=== PATIENT | female | born 1960 | race Caucasian/White ===

== ENCOUNTER 2017-01-25 13:21 | Emergency (ER) | payer OTHER ==
[~2017-01-25] VITALS: Ht 165.1 cm; Wt 63.0 kg
[~2017-01-25 13:21] MED LIST: CLON1TAB3 PO
--- NOTE | 2017-01-25 13:30 | PHYS DOC ---
Past Medical History Past Medical History: Anxiety, Bipolar, Seizure, Schizophrenia Past Surgical History: Other Additional Past Surgical Histo: hernia repair with mesh with abdomen Alcohol Use: None Drug Use: None Adult General Chief Complaint Chief Complaint: ANXIETY/PANIC ATTACK HPI HPI Patient is a 56 year old female who presents with multiple complaints. She states her back is hurting her and she wanted some x-rays done. She states she had them done 2 years ago but she is not convinced that they were legitimate x-rays. She complains in the lumbar area. She's been taking Tylenol for this discomfort. She denies any fevers chills nausea or vomiting. She also states she's been out of her clonazepam 1 mg twice a day for approximately 2 weeks. She states she is seen at the [facility] by Dr. Olsen and she can't get a hold of him to get refills. Review of Systems Review of Systems Constitutional: Denies fever or chills [] Eyes: Denies change in visual acuity, redness, or eye pain [] HENT: Denies nasal congestion or sore throat [] Respiratory: Denies cough or shortness of breath [] Cardiovascular: No additional information not addressed in HPI [] GI: Denies abdominal pain, nausea, vomiting, bloody stools or diarrhea [] : Denies dysuria or hematuria [] Musculoskeletal: Positive for back pain, Denies joint pain [] Integument: Denies rash or skin lesions [] Neurologic: Denies headache, focal weakness or sensory changes [] Endocrine: Denies polyuria or polydipsia [] Current Medications Current Medications Current Medications Medications (Trade) Dose Ordered Sig/[facility] Start Time Stop Time Status Last Admin Dose Admin Clonazepam (KlonoPIN) 0.5 mg 1X ONCE 01/25/17 14:00 01/25/17 14:01 DC 01/25/17 14:17 0.5 MG Potassium Chloride (Klor-Con) 40 meq 1X ONCE 01/25/17 15:45 01/25/17 15:46 01/25/17 15:34 40 MEQ Allergies Allergies Allergies Coded Allergies Type Severity Reaction Last Updated Verified No Known Drug Allergies 04/04/16 No Physical Exam Physical Exam Constitutional: Well developed, well nourished, no acute distress, non-toxic appearance. [] HENT: Normocephalic, atraumatic, bilateral external ears normal, oropharynx moist, no oral exudates, nose normal. [] Eyes: PERRLA, EOMI, conjunctiva normal, no discharge. [] Neck: Normal range of motion, no tenderness, supple, no stridor. [] Cardiovascular:Heart rate regular rhythm, no murmur [] Lungs & Thorax: Bilateral breath sounds clear to auscultation [] Abdomen: Bowel sounds normal, soft, no tenderness, no masses, no pulsatile masses. [] Skin: Warm, dry, no erythema, no rash. [] Back: Mild tender palpation diffusely to the lumbar area, no step-offs or midline tenderness noted or appreciated, no CVA tenderness. [] Extremities: No tenderness, no cyanosis, no clubbing, ROM intact, no edema. [] Neurologic: Alert and oriented X 3, normal motor function, normal sensory function, no focal deficits noted. [] Psychologic: Affect normal, judgement normal, mood normal. [] Current Patient Data Vital Signs Vital Signs Date Time Temp Pulse Resp B/P (MAP) Pulse Ox O2 Delivery O2 Flow Rate FiO2 01/25/17 15:01 78 146/78 (100) 95 01/25/17 14:50 Room Air 01/25/17 14:11 17 01/25/17 13:29 97.7 97.7 Lab Values Laboratory Tests Test 01/25/17 14:00 01/25/17 14:18 White Blood Count 10.2 x10^3/uL (4.0-11.0) Red Blood Count 4.62 x10^6/uL (3.50-5.40) Hemoglobin 14.7 g/dL (12.0-15.5) Hematocrit 43.2 % (36.0-47.0) Mean Corpuscular Volume 94 fL (79-100) Mean Corpuscular Hemoglobin 32 pg (25-35) Mean Corpuscular Hemoglobin Concent 34 g/dL (31-37) Red Cell Distribution Width 13.2 % (11.5-14.5) Platelet Count 225 x10^3/uL (140-400) Neutrophils (%) (Auto) 79 % (31-73) H Lymphocytes (%) (Auto) 16 % (24-48) L Monocytes (%) (Auto) 4 % (0-9) Eosinophils (%) (Auto) 0 % (0-3) Basophils (%) (Auto) 1 % (0-3) Neutrophils # (Auto) 8.0 x10^3uL (1.8-7.7) H Lymphocytes # (Auto) 1.6 x10^3/uL (1.0-4.8) Monocytes # (Auto) 0.4 x10^3/uL (0.0-1.1) Eosinophils # (Auto) 0.0 x10^3/uL (0.0-0.7) Basophils # (Auto) 0.1 x10^3/uL (0.0-0.2) Sodium Level 139 mmol/L (136-145) Potassium Level 3.4 mmol/L (3.5-5.1) L Chloride Level 102 mmol/L (98-107) Carbon Dioxide Level 29 mmol/L (21-32) Anion Gap 8 (6-14) Blood Urea Nitrogen 7 mg/dL (7-20) Creatinine 0.8 mg/dL (0.6-1.0) Estimated GFR (Cockcroft-Gault) 74.2 Glucose Level 124 mg/dL (70-99) H Calcium Level 9.2 mg/dL (8.5-10.1) Total Bilirubin 0.3 mg/dL (0.2-1.0) Direct Bilirubin 0.1 mg/dL (0.0-0.2) Aspartate Amino Transferase (AST) 16 U/L (15-37) Alanine Aminotransferase (ALT) 25 U/L (14-59) Alkaline Phosphatase 118 U/L (46-116) H Creatine Kinase 99 U/L (26-192) Creatine Kinase MB (Mass) 0.9 ng/mL (0.0-3.6) Creatine Kinase MB Relative Index 0.9 % (0-4) Total Protein 7.9 g/dL (6.4-8.2) Albumin 3.9 g/dL (3.4-5.0) Lipase 108 U/L (73-393) Serum Test, Qualitative Negative (NEG) Urine Collection Type Unknown Urine Color Yellow Urine Clarity Clear Urine pH 7.0 Urine Specific [place] <=1.005 Urine Protein Negative mg/dL (NEG-TRACE) Urine Glucose (UA) Negative mg/dL (NEG) Urine Ketones (Stick) Negative mg/dL (NEG) Urine Blood Small (NEG) Urine Nitrite Positive (NEG) Urine Bilirubin Negative (NEG) Urine Urobilinogen Dipstick 0.2 mg/dL (0.2 mg/dL) Urine Leukocyte Esterase Trace (NEG) Urine RBC 1-2 /HPF (0-2) Urine WBC 5-10 /HPF (0-4) Urine Squamous Epithelial Cells Mod /LPF Urine Bacteria Many /HPF (0-FEW) Urine Opiates Screen Neg (NEG) Urine Methadone Screen Neg (NEG) Urine Barbiturates Neg (NEG) Urine Phencyclidine Screen Neg (NEG) Urine Amphetamine/Methamphetamine Neg (NEG) Urine Benzodiazepines Screen Neg (NEG) Urine Cocaine Screen Neg (NEG) Urine Cannabinoids Screen Neg (NEG) Urine Ethyl Alcohol Neg (NEG) Laboratory Tests 01/25/17 14:00 Laboratory Tests 01/25/17 14:00 EKG EKG [] Radiology/Procedures Radiology/Procedures [facility] [address] [place] [address] IMAGING REPORT Signed PATIENT: XIOMARA CLAUDIO ACCOUNT: [id number] : 1960 LOCATION: ER AGE: 56 SEX: F EXAM STATUS: REG ER ORD. PHYSICIAN: MAYE CHOU MD REASON: back pain PROCEDURE: LUMBAR SPINE 2-3V Exam performed: X-ray lumbar spine. History: Back pain. Date of service: 01/25/17 comparison: None available Findings: AP, lateral and coned view of the lumbosacral junction are obtained. Normal sagittal alignment is preserved. Vertebral body heights are maintained. There is narrowing of L4-5 intervertebral disc spaces with mild marginal osteophytes. No compression fracture. There are bilateral facet hypertrophic changes extending from C3 to S1. Impression: Mild spondylotic changes and degenerative disc disease involving the lumbar spine. No acute abnormality noted. DICTATED and SIGNED BY: SHARA HORNE MD DATE: 01/25/17 3245 CC: MAYE CHOU MD; UNKNOWN PCP NAME ~ Impressions: back pain UTI med refill Course & Med Decision Making Course & Med Decision Making Pertinent Labs and Imaging studies reviewed. (See chart for details) [] Dragon Disclaimer Dragon Disclaimer This electronic medical record was generated, in whole or in part, using a voice recognition dictation system. Departure Departure Impression: Primary Impression: Medication refill Disposition: HOME, SELF-CARE Condition: STABLE Referrals: SUDHA WILSON MD (PCP) Patient Instructions: Back Pain, Adult, [id number] Additional Instructions: You were seen today because you ran out of your medications. Your potassium level was slightly low and this was replaced. You also had a bladder infection and need take antibiotics for the next 3 days. Your being discharged home. Please follow-up with your [facility] physician as soon as possible. I've written a prescription of 0.5 mg clonazepam twice daily for the next few days until you can get her meds refilled. Scripts Levofloxacin (LEVAQUIN) 500 Mg Tablet 1 TAB PO DAILY, #3 TAB Prov: MAYE CHOU MD 01/25/17 Clonazepam (CLONAZEPAM) 0.5 Mg Tablet 1 TAB PO BID Y for ANXIETY, #15 TAB 1 Refill Prov: MAYE CHOU MD 01/25/17 MAYE CHOU MD Jan 25, 2017 13:30
[2017-01-25] MEDS ORDERED: clonazePAM 0.5 MG TABLET PO ONE (14:00)
--- NOTE | 2017-01-25 14:09 | RAD ---
Exam performed: X-ray lumbar spine. History: Back pain. Date of service: 01/25/17 comparison: None available Findings: AP, lateral and coned view of the lumbosacral junction are obtained. Normal sagittal alignment is preserved. Vertebral body heights are maintained. There is narrowing of L4-5 intervertebral disc spaces with mild marginal osteophytes. No compression fracture. There are bilateral facet hypertrophic changes extending from C3 to S1. Impression: Mild spondylotic changes and degenerative disc disease involving the lumbar spine. No acute abnormality noted.
[2017-01-25 14:19] LABS: BASO # 0.1 x10^3/uL (0.0-0.2); BASO % 1 % (0-3); EOS % 0 % (0-3); HEMATOCRIT 43.2 % (36.0-47.0); HEMOGLOBIN 14.7 g/dL (12.0-15.5); LYMPH # 1.6 x10^3/uL (1.0-4.8); LYMPH % 16 % (24-48); MEAN CORPUSCULAR HEMOGLOBIN 32 pg (25-35); MEAN CORPUSCULAR HGB CONC 34 g/dL (31-37); MEAN CORPUSCULAR VOLUME 94 fL (79-100); MONO % 4 % (0-9); NEUT % 79 % (31-73); PLATELET COUNT 225 x10^3/uL (140-400); RED BLOOD COUNT 4.62 x10^6/uL (3.50-5.40); RED CELL DISTRIBUTION WIDTH 13.2 % (11.5-14.5); WHITE BLOOD COUNT 10.2 x10^3/uL (4.0-11.0)
[2017-01-25 14:36] LABS: NEG OBC SER NEG; POS OBC SER POS
[2017-01-25 14:37] LABS: CALCIUM 9.2 mg/dL (8.5-10.1); CREATININE 0.8 mg/dL (0.6-1.0); GFR 74.2; POTASSIUM 3.4 mmol/L (3.5-5.1)
[2017-01-25 14:45] LABS: ALBUMIN 3.9 g/dL (3.4-5.0); DIRECT BILIRUBIN 0.1 mg/dL (0.0-0.2); TOTAL BILIRUBIN 0.3 mg/dL (0.2-1.0); TOTAL PROTEIN 7.9 g/dL (6.4-8.2)
[2017-01-25 14:48] LABS: BARBITURATES NEG (NEG); BENZODIAZEPINES NEG (NEG); CANNABINOIDS NEG (NEG); COCAINE NEG (NEG); METHADONE NEG (NEG); OPIATES NEG (NEG); PHENCYCLIDINE NEG (NEG)
[2017-01-25 14:51] LABS: CKMB MASS 0.9 ng/mL (0.0-3.6)
[2017-01-25 15:01] VITALS: BP 146/78
[2017-01-25 15:21] LABS: BILIRUBIN,URINE NEGATIVE (NEG); GLUCOSE,URINE NEGATIVE (NEG); NITRITE,URINE POSITIVE (NEG); PROTEIN,URINE NEGATIVE (NEG-TRACE); UROBILINOGEN,URINE 0.2 mg/dL (0.2 mg/dL)
[2017-01-25 15:30] LABS: BACTERIA,URINE MANY /HPF (0-FEW); SQUAMOUS EPITHELIAL CELL,UR MOD /LPF
[2017-01-25] MEDS ORDERED: CLON0.5T3 PO (15:31)
[2017-01-25] MEDS ORDERED: LEVO500T59 PO (15:37)
[2017-01-25] MEDS ORDERED: POTASSIUM CHLORIDE 20 MEQ TABLET.ER. PO ONE (15:45)
--- NOTE | 2017-01-27 14:35 | VNOTE ---
CALL BACK NOTE CALL BACK Microbiology 01/25/17 Urine Culture - Final, Complete 01/25/17 Urine Culture Result 1 (RICO) - Final, Complete 01/25/17 Antimicrobic Susceptibility - Final, Complete Patient's urine was positive for Escherichia coli. Patient was placed on Levaquin which is resistant to this infection. Notified the patient at her home phone number [phone]. Patient will be placed on Macrobid one tablet twice day for the next 7 days. She has requested the prescription be called into [facility] at [address] [place] [address]. ROSIE KELLY APRN Jan 27, 2017 14:35
== END 2017-01-25 15:47 | disposition home or self-care (01) ==
LOC: ER 13:21
DX: M51.36 Other intervertebral disc degeneration, lumbar region (principal); E87.6 Hypokalemia; Z76.0 Encounter for issue of repeat prescription; Z79.899 Other long term (current) drug therapy; F20.9 Schizophrenia, unspecified
CPT/HCPCS: 36415; 72100; 80048; 80076; 80307; 81001; 82553; 83690; 84703; 85025; 87086; 87186; 99285; G0479

== ENCOUNTER 2017-02-08 15:29 | Emergency (ER) | payer OTHER ==
[~2017-02-08] VITALS: Ht 165.1 cm; Wt 63.0 kg
[~2017-02-08 15:29] MED LIST changes: +CLON0.5T3 PO; +LEVO500T59 PO
[2017-02-08 15:40] VITALS: BP 118/68
[2017-02-08] MEDS ORDERED: clonazePAM 0.5 MG TABLET PO ONE (16:00)
[2017-02-08 16:05] LABS: BILIRUBIN,URINE NEGATIVE (NEG); GLUCOSE,URINE NEGATIVE (NEG); NITRITE,URINE NEGATIVE (NEG); PH,URINE 6.5; PROTEIN,URINE NEGATIVE (NEG-TRACE); UROBILINOGEN,URINE 0.2 mg/dL (0.2 mg/dL)
--- NOTE | 2017-02-08 16:06 | PHYS DOC ---
Past Medical History Past Medical History: Anxiety, Bipolar, Seizure, Schizophrenia, UTI Past Surgical History: Other Additional Past Surgical Histo: hernia repair with mesh with abdomen; exploratory laproscopy Alcohol Use: None Drug Use: None Adult General Chief Complaint Chief Complaint: BACK PAIN - NO INJURY [facility] HPI Patient is a 56 year old female presents to the emergency department stating that she has been having urinary frequency and pain with urination. She states that she was treated with antibiotics on 01/25 in which she feels do not take care of the infection. Patient also states that she is having lower back pain and discomfort with no injury. She does state that she's having to do a lot of chores where she is living at. Patient also states she has a history of bipolar and takes clonazepam. She states that she had a prescription that was filled on 01/28 and shortly after filling the prescription that she lost the medication. She states she has been without her medicine since that time. Patient denies being homicidal or suicidal. Patient is unable to remember who provided her with the prescription. Patient denies any numbness or tingling down into her lower extremities. She denies any loss of bowel or bladder. Review of Systems Review of Systems Constitutional: Denies fever or chills [] Eyes: Denies change in visual acuity, redness, or eye pain [] HENT: Denies nasal congestion or sore throat [] Respiratory: Denies cough or shortness of breath [] Cardiovascular: No additional information not addressed in HPI [] GI: Denies abdominal pain, nausea, vomiting, bloody stools or diarrhea [] : dysuria denies hematuria [] Musculoskeletal: back pain denies joint pain [] Integument: Denies rash or skin lesions [] Neurologic: Denies headache, focal weakness or sensory changes [] Endocrine: Denies polyuria or polydipsia [] Current Medications Current Medications Current Medications Medications (Trade) Dose Ordered Sig/[facility] Start Time Stop Time Status Last Admin Dose Admin Clonazepam (KlonoPIN) 1 mg 1X ONCE 02/08/17 16:00 02/08/17 16:01 DC 02/08/17 16:05 1 MG Allergies Allergies Allergies Coded Allergies Type Severity Reaction Last Updated Verified No Known Drug Allergies 04/04/16 No Physical Exam Physical Exam Constitutional: Well developed, well nourished, no acute distress, non-toxic appearance. [] HENT: Normocephalic, atraumatic, bilateral external ears normal, oropharynx moist, no oral exudates, nose normal. [] Eyes: PERRLA, EOMI, conjunctiva normal, no discharge. [] Neck: Normal range of motion, no tenderness, supple, no stridor. [] Cardiovascular:Heart rate regular rhythm, no murmur [] Lungs & Thorax: Bilateral breath sounds clear to auscultation [] Skin: Warm, dry, no erythema, no rash. [] Back: No tenderness, bilateral CVA tenderness. [] Extremities: No tenderness, no cyanosis, no clubbing, ROM intact, no edema. Patient with the inability to straighten bilateral legs. Patient is also able to cross legs without difficulty. Neurologic: Alert and oriented X 3, normal motor function, normal sensory function, no focal deficits noted. [] Psychologic: Affect normal, judgement normal, mood normal. [] Current Patient Data Vital Signs Vital Signs Date Time Temp Pulse Resp B/P (MAP) Pulse Ox O2 Delivery O2 Flow Rate FiO2 02/08/17 15:40 97.8 84 22 98 Room Air 97.8 Lab Values Laboratory Tests Test 02/08/17 16:00 Urine Collection Type Unknown Urine Color Yellow Urine Clarity Clear Urine pH 6.5 Urine Specific [place] <=1.005 Urine Protein Negative mg/dL (NEG-TRACE) Urine Glucose (UA) Negative mg/dL (NEG) Urine Ketones (Stick) Negative mg/dL (NEG) Urine Blood Negative (NEG) Urine Nitrite Negative (NEG) Urine Bilirubin Negative (NEG) Urine Urobilinogen Dipstick 0.2 mg/dL (0.2 mg/dL) Urine Leukocyte Esterase Negative (NEG) Urine RBC 1-2 /HPF (0-2) Urine WBC Rare /HPF (0-4) Urine Squamous Epithelial Cells Few /LPF Urine Bacteria 0 /HPF (0-FEW) EKG EKG [] Radiology/Procedures Radiology/Procedures [] Course & Med Decision Making Course & Med Decision Making Pertinent Labs and Imaging studies reviewed. (See chart for details) Patient states that she takes Tylenol for the pain and discomfort which has not helped. Patient states that she is unsure what medicine she was placed on for urinary tract infection however looking back to the chart she didn't placed on Levaquin and was notified on 01/27 that her antibiotic need to be changed to Macrobid. Patient states she did pick the prescription up and had completed the antibiotic regimen. Patient's urine was negative for urinary tract infection. Patient however does have dysuria we'll provide her with some Keflex. Patient also is having some back pain and discomfort we'll provide her with a perception for Flexeril 5 mg she can take 3 times a day she was instructed this medication will cause drowsiness do not take any be alert and oriented. She can continue to use Tylenol or ibuprofen for pain and discomfort. She'll be provided with the name of the psychiatrist that she sees and we would Krian Aleman. His number is [phone]. Recommended for her to follow-up with him in regards to her clonazepam being stolen. Patient was however provided with clonazepam here in the emergency department. Patient was provided with signs and symptoms to return back to emergency department. All questions and concerns been answered at the patient's bedside. [] Dragon Disclaimer Dragon Disclaimer This electronic medical record was generated, in whole or in part, using a voice recognition dictation system. Departure Departure Impression: Primary Impression: Dysuria Additional Impression: Back pain Disposition: 01 HOME, SELF-CARE Condition: STABLE Referrals: UNKNOWN PCP NAME (PCP) Patient Instructions: Back Pain, Adult, [id number], Dysuria-Brief Additional Instructions: Activity as tolerated Medication as prescribed Drink plenty of fluids such as water and cranberry juice Avoid cranberry juice cocktail, carbonated beverages, caffeine, alcohol and citrus fruits as these are considered to be irritants to the bladder Flexeril will help with the back pain. This medication will cause drowsiness do not take if you need to alert and oriented Followup with Dr Echeverria [address] [place] [address] [phone] for your medication Return to emergency department as needed for signs and symptoms that become worse Scripts Cyclobenzaprine Hcl (CYCLOBENZAPRINE HCL) 5 Mg Tablet 1 TAB PO TID Y for MUSCLE SPASMS, #30 TAB Prov: ROSIE KELLY APRN 02/08/17 Cephalexin (CEPHALEXIN) 500 Mg Tablet 1 TAB PO BID, #14 TAB Prov: ROSIE KELLY APRN 02/08/17 Problem Qualifiers Additional Impression: Back pain Back pain location: back pain in unspecified location Chronicity: unspecified Back pain laterality: unspecified Qualified Codes: M54.9 - Dorsalgia, unspecified ROSIE KELLY [employer]DEL Feb 08, 2017 16:06
[2017-02-08 16:26] LABS: BACTERIA,URINE 0 /HPF (0-FEW); SQUAMOUS EPITHELIAL CELL,UR FEW /LPF; WBC,URINE RARE /HPF (0-4)
[2017-02-08] MEDS ORDERED: CYCL5TAB PO (16:35)
[2017-02-08] MEDS ORDERED: CEPH500T PO (16:35)
== END 2017-02-08 16:49 | disposition home or self-care (01) ==
LOC: ER 15:29
DX: R30.0 Dysuria (principal); M54.5 Low back pain; R35.0 Frequency of micturition; F41.9 Anxiety disorder, unspecified; F20.9 Schizophrenia, unspecified; F31.9 Bipolar disorder, unspecified; Z87.440 Personal history of urinary (tract) infections
CPT/HCPCS: 81001; 99283

== ENCOUNTER 2017-03-31 12:44 | Emergency (ER) | payer OTHER ==
[~2017-03-31] VITALS: Ht 165.1 cm; Wt 63.5 kg
[~2017-03-31 12:44] MED LIST changes: +CEPH500T PO; +CYCL5TAB PO
[2017-03-31 12:55] VITALS: BP 155/75
[2017-03-31] MEDS ORDERED: CLON1TAB3 PO (13:15)
--- NOTE | 2017-03-31 13:15 | PHYS DOC ---
Past Medical History Past Medical History: Anxiety, Bipolar, Seizure, Schizophrenia, UTI Additional Past Medical Histor: CHRONIC BACK PAIN Past Surgical History: Other Additional Past Surgical Histo: hernia repair with mesh with abdomen; exploratory laproscopy Additional Information: 0.5 PPD Alcohol Use: None Drug Use: None Adult General Chief Complaint Chief Complaint: MEDICATION REFILL HPI HPI Patient is a 56-year-old female with multiple medical problems to include anxiety, schizophrenia, bipolar disorder presents and she is out of her medications. She was in a verbal altercation with her infrastructure manager this morning and she been having some anxiety since. She noted when she was attempted to take her clonazepam at home she was out of medication. She normally sees her doctor regularly. She denies any changes in medications, denies any headache, having any auditory or visual hallucinations. Patient further denies any suicidal homicidal ideations. Patient has not taken the clonazepam for her seizures. Patient has no other complaints and is sitting quietly waiting. Review of Systems Review of Systems Constitutional: Denies fever or chills [] Eyes: Denies change in visual acuity, redness, or eye pain [] HENT: Denies nasal congestion or sore throat [] Respiratory: Denies cough or shortness of breath [] Cardiovascular: No additional information not addressed in HPI [] GI: Denies abdominal pain, nausea, vomiting, bloody stools or diarrhea [] : Denies dysuria or hematuria [] Musculoskeletal: Denies back pain or joint pain [] Integument: Denies rash or skin lesions [] Neurologic: Denies headache, focal weakness or sensory changes [] All other systems were reviewed and found to be within normal limits, except as documented in this note. Allergies Allergies Allergies Coded Allergies Type Severity Reaction Last Updated Verified No Known Drug Allergies 04/04/16 No Physical Exam Physical Exam Other vital signs recorded on the chart within normal limits. Constitutional: Well developed, well nourished, patient obviously is uncomfortable and anxious but nontoxic and in no acute respiratory distress. HENT: Normocephalic, atraumatic oropharynx moist Eyes: PERRLA, EOMI, conjunctiva normal, no discharge. [] Neck: Normal range of motion, no tenderness, supple, no stridor no evidence of anterior neck swelling across her thyroid.. [] Cardiovascular:Heart rate regular rhythm, no murmur [] Lungs & Thorax: Bilateral breath sounds clear to auscultation [] Skin: Warm, dry, no erythema, no rash. [] Neurologic: Alert and oriented X 3, normal motor function, normal sensory function, no focal deficits noted. Patient has normal gait[] Psychologic: Patient is anxious but has normal judgment normal affect at this time.[] Current Patient Data Vital Signs Vital Signs Date Time Temp Pulse Resp B/P (MAP) Pulse Ox O2 Delivery O2 Flow Rate FiO2 03/31/17 12:55 98.3 95 20 98 Room Air 98.3 EKG EKG [] Radiology/Procedures Radiology/Procedures [] Course & Med Decision Making Course & Med Decision Making Pertinent Labs and Imaging studies reviewed. (See chart for details) []Patient presents with acute anxiety after being in a verbal altercation with her infrastructure manager this morning. She noted that she attempted to take her clonazepam this morning she was out of medication. The patient and I had a long discussion about controlled substance is and that the emergency department is not a place to actually get her medications refilled. Given our new policy of not refilling controlled some says patient will be given a 2 day course and asked to follow-up with her primary care doctor tomorrow who normally gets her her clonazepam. She does not seem to be in any distress she denies any auditory or visual hallucinations. She is not suicidal homicidal. Patient understands these instructions as given to her. discharge: I've spoken with the patient and/or caregivers. I've explained the patient's condition, diagnosis and treatment plan based on information available to me at this time. I've answered the patient's and/or caregivers questions and addressed any concerns. The patient and/or caregivers have a good understanding the patient's diagnosis, condition and treatment plan as can be expected at this point. Vital signs have been stabilized. The patient's condition is stable for discharge from the emergency department. The patient will pursue further outpatient evaluation with her primary care provider or other designated consulting physician as outlined in the discharge instructions. Patient and/or caregivers are agreeable to this plan of care and follow-up instructions have been explained in detail. The patient and/or caregivers have received these instructions in written format and expressed understanding of these discharge instructions. The patient and her caregivers are aware that if any significant change in condition or worsening of symptoms should prompt him to immediately return to this of the closest emergency department. If an emergent department is not readily available I would encourage him to call 911. Dragon Disclaimer Dragon Disclaimer This electronic medical record was generated, in whole or in part, using a voice recognition dictation system. Departure Departure Impression: Primary Impression: Anxiety Additional Impression: Medication refill Disposition: HOME, SELF-CARE Condition: IMPROVED Referrals: UNKNOWN PCP NAME (PCP) Patient Instructions: Anxiety and Panic Attacks, Medication Refill, Emergency Department Additional Instructions: discharge: I've spoken with the patient and/or caregivers. I've explained the patient's condition, diagnosis and treatment plan based on information available to me at this time. I've answered the patient's and/or caregivers questions and addressed any concerns. The patient and/or caregivers have a good understanding the patient's diagnosis, condition and treatment plan as can be expected at this point. Vital signs have been stabilized. The patient's condition is stable for discharge from the emergency department. The patient will pursue further outpatient evaluation with her primary care provider or other designated consulting physician as outlined in the discharge instructions. Patient and/or caregivers are agreeable to this plan of care and follow-up instructions have been explained in detail. The patient and/or caregivers have received these instructions in written format and expressed understanding of these discharge instructions. The patient and her caregivers are aware that if any significant change in condition or worsening of symptoms should prompt him to immediately return to this of the closest emergency department. If an emergent department is not readily available I would encourage him to call 911. Scripts Clonazepam (CLONAZEPAM) 1 Mg Tablet 1 TAB PO BID, #6 TAB 0 Refills Prov: MAZIN ALFORD MD 03/31/17 Problem Qualifiers MAZIN ALFORD MD Mar 31, 2017 13:15
== END 2017-03-31 13:24 | disposition home or self-care (01) ==
LOC: ER 12:44
DX: Z76.0 Encounter for issue of repeat prescription (principal); F41.9 Anxiety disorder, unspecified; F31.9 Bipolar disorder, unspecified; F20.9 Schizophrenia, unspecified; F17.200 Nicotine dependence, unspecified, uncomplicated; G89.29 Other chronic pain
CPT/HCPCS: 99284

== ENCOUNTER 2017-05-25 13:57 | Emergency (ER) | payer OTHER | END 2017-05-25 14:15 | disposition home or self-care (01) | LOC: ER 13:57 | DX: Z76.0 Encounter for issue of repeat prescription (principal); F41.9 Anxiety disorder, unspecified; F31.9 Bipolar disorder, unspecified; G89.29 Other chronic pain; F20.9 Schizophrenia, unspecified | CPT/HCPCS: 99281 ==